=== PATIENT | female | born 1965 | race Caucasian/White ===

== ENCOUNTER 2016-04-04 21:24 | Emergency (ER) | payer OTHER ==
[~2016-04-04] VITALS: Ht 152.4 cm; Wt 52.5 kg
[2016-04-04 21:56] VITALS: Ht 152.4 cm; Wt 52.5 kg
[2016-04-04] MEDS ORDERED: SOD CHLORIDE 0.9% 1,000 ML IV STA (23:47)
[2016-04-05 00:49] LABS: ALBUMIN 4.3 g/dl (3.3-4.9)
[2016-04-05 00:50] LABS: POTASSIUM 3.9 mmol/L (3.5-5.1)
[2016-04-05 00:52] LABS: ALBUMIN/GLOBULIN RATIO 1.1; CREATININE 0.62 mg/dl (0.44-1.00); TOTAL PROTEIN 8.2 g/dl (6.1-8.1)
[2016-04-05 00:53] LABS: CALCIUM 9.2 mg/dl (8.4-10.2)
[2016-04-05 01:00] LABS: BASOPHILS % 0.5 % (0.0-2.0); EOSINOPHILS % 3.7 % (0.0-7.0); HEMOGLOBIN 8.9 g/dl (12.0-16.0); LYMPHOCYTES % 37.3 % (15.0-51.0); MEAN CORPUSCULAR HGB CONC 28.7 g/dl (32.0-37.0); MEAN CORPUSCULAR VOLUME 66.1 fl (82.0-101.0); MONOCYTES % 7.6 % (0.0-11.0); NEUTROPHILS % 50.8 % (39.0-77.0); PLATELET COUNT 246 10^3/UL (140-440); RED BLOOD COUNT 4.69 10^6/ul (4.20-5.40); RED CELL DISTRIBUTION WIDTH 18.7 % (11.5-14.5); WHITE BLOOD COUNT 7.7 10^3/ul (4.8-10.8)
[2016-04-05 01:01] LABS: EOSINOPHILS # 0.3 10^3/ul (0.0-0.5); LYMPHOCYTES # 2.9 10^3/ul (0.8-2.9); MONOCYTE # 0.6 10^3/ul (0.3-0.9); NEUTROPHIL # 3.9 10^3/ul (1.6-7.5)
[2016-04-05 02:01] LABS: ADD UMIC YES; URINE BILIRUBIN (Dip) NEGATIVE (NEGATIVE); URINE BLOOD (Dip) TRACE (NEGATIVE); URINE COLOR LT. YELLOW (YELLOW); URINE GLUCOSE (Dip) >=1000 % (NEGATIVE); URINE KETONES (Dip) NEGATIVE (NEGATIVE); URINE LEUKOCYTE ESTERASE (Dip) NEGATIVE (NEGATIVE); URINE NITRITE (Dip) NEGATIVE (NEGATIVE); URINE TOTAL PROTEIN (Dip) 1+ (NEGATIVE); URINE UROBILINOGEN (Dip) 0.2 E.U./dL (0.1-1.0)
[2016-04-05 02:15] LABS: SQUAMOUS EPITHELIAL CELL,UR MODERATE
[2016-04-05 02:16] LABS: BACTERIA,URINE MODERATE; MUCUS,URINE MODERATE
[2016-04-05] MEDS ORDERED: FER325 PO (02:37)
[2016-04-05] MEDS ORDERED: DOCU-144 PO (02:37)
--- NOTE | 2016-04-05 02:43 | ERD ---
ER Documentation Chief Complaint Date/Time DATE: 04/05/16 TIME: 02:39 Chief Complaint Hyperglycemia. No symptoms HPI 50-year-old female with a past medical history of chronic anemia and diabetes presents to the ED complaining of hyperglycemia and left eye blurred vision. Patient states that she was sent here by her primary care physician for further evaluation. States that she will get a referral to see her terminal gauger. States that the blurred vision has been going on for 2 days however denies any eye pain, eye redness, purulent discharge. Denies any fever, chills, abdominal pain, nausea, vomiting, headache, weakness, dizziness. Patient states that she has not been taking her diabetic medications or iron medications. ROS All systems reviewed and are negative except as per history of present illness. Medications Home Meds Active Scripts Docusate Sodium* (Colace*) 100 Mg Capsule, 100 MG PO TID, #30 CAP Prov:LAILA CHRISTIE PA-C 04/05/16 Ferrous Sulfate* (Ferrous Sulfate*) 325 Mg Tabec, 325 MG PO TID, #60 TAB Prov:LAILA CHRISTIE PA-C 04/05/16 Allergies Allergies: Coded Allergies: No Known Allergies (Verified Allergy, Mild, 01/20/16) PMhx/Soc History of Surgery: Yes ("to not have children anymore") Anesthesia Reaction: No Hx Neurological Disorder: No Hx Respiratory Disorders: No Hx Cardiac Disorders: No Hx Psychiatric Problems: No Hx Miscellaneous Medical Probl: Yes (Diabetes type 1) Hx Alcohol Use: No Hx Substance Use: No Hx Tobacco Use: No Smoking Status: Never smoker Physical Exam Vitals Temp 98.2 Pulse 92 Resp 18 SBP 169 DBP 75 O2 Sat 98 Physical Exam Const: [id number], well-nourished. In no acute distress. Head: Atraumatic, normocephalic Eyes: Normal Conjunctiva without injection. No purulent discharge. PERRLA. EOMI ENT: Normal external ear. Ear canal without erythema. Tympanic membrane pearly romano without effusion or bulging. Nasal canal clear with normal turbinates. Moist oropharynx without tonsillar exudates. Non-erythematous pharynx. Uvula midline. No drooling. No trismus. Neck: No cervical midline tenderness. Full range of motion. No meningismus. No cervical lymphadenopathy. No JVD. Resp: Clear to auscultation bilaterally. No wheezing, rhonchi, rales, or crackles. No accessory muscle use. No retractions. Cardio: Regular rate and rhythm. No murmurs, rubs or gallops. Abd: Soft, non tender, non distended. Normal bowel sounds. No palpable masses. No rebound tenderness. No guarding. Negative McBurney's Point. Negative Mota's Sign. Skin: Normal skin turgor. No petechiae or rashes Back: No midline tenderness. No CVA tenderness. Ext: No cyanosis, or edema. Distal pulses intact bilaterally. Neur: Awake and alert. Normal gait. Normal coordination. Cranial Nerves II- VII intact. Normal finger to nose. Muscle strength 5/5. Sensation intact. Psych: Normal Mood and Affect Result Diagram: 04/05/16 0015 04/05/16 0015 Results 24 hrs Laboratory Tests Test 04/04/16 23:55 04/05/16 00:13 04/05/16 00:15 04/05/16 02:12 Urine Bacteria MODERATE Urine Bilirubin NEGATIVE Urine Clarity CLEAR Urine Color LT. YELLOW Urine Glucose >=1000% Urine Hemoglobin TRACE Urine Ketones NEGATIVE Urine Leukocyte Esterase NEGATIVE Urine Microscopic RBC 2-5/HPF Urine Microscopic WBC 0-2/HPF Urine Mucus MODERATE Urine Nitrite NEGATIVE Urine Specific Goodyear 1.020 Urine Squamous Epithelial Cells MODERATE Urine Total Protein 1+ Urine Urobilinogen 0.2 E.U./dL Urine pH 6.0 Bedside Glucose 314mg/dL 284mg/dL Alanine Aminotransferase (ALT/SGPT) 27IU/L Albumin 4.3g/dl Albumin/Globulin Ratio 1.10 Alkaline Phosphatase 112IU/L Anion Gap 13 Aspartate Amino Transf (AST/SGOT) 25IU/L Basophils # 0.010^3/ul Basophils % 0.5% Blood Urea Nitrogen 17mg/dl Calcium Level 9.2mg/dl Carbon Dioxide Level 31mmol/L Chloride Level 97mmol/L Creatinine 0.62mg/dl Direct Bilirubin 0.00mg/dl Eosinophils # 0.310^3/ul Eosinophils % 3.7% Globulin 3.90g/dl Glucose Level 326mg/dl Hematocrit 31.0% Hemoglobin 8.9g/dl Indirect Bilirubin 0.0mg/dl Lipase 129U/L Lymphocytes # 2.910^3/ul Lymphocytes % 37.3% Mean Corpuscular Hemoglobin 19.0pg Mean Corpuscular Hemoglobin Concent 28.7g/dl Mean Corpuscular Volume 66.1fl Mean Platelet Volume 11.0fl Monocytes # 0.610^3/ul Monocytes % 7.6% Neutrophils # 3.910^3/ul Neutrophils % 50.8% Nucleated Red Blood Cells # 0.010^3/ul Nucleated Red Blood Cells % 0.0/100WBC Platelet Count 94058^3/UL Potassium Level 3.9mmol/L Red Blood Count 4.6910^6/ul Red Cell Distribution Width 18.7% Sodium Level 137mmol/L Total Bilirubin 0.0mg/dl Total Protein 8.2g/dl White Blood Count 7.710^3/ul Current Medications Medications (Trade) Dose Ordered Sig/Andria Route PRN Reason Start Time Stop Time Status Last Admin Dose Admin Sodium Chloride (NS) 1,000 ml @ 1,000 mls/hr Q1H STAT IV 04/04/16 23:47 04/05/16 00:46 DC 04/05/16 00:06 Procedures/MDM This is a 50-year-old female with a past medical history of diabetes and anemia presents the ED complaining of left eye blurred vision as well as hyperglycemia. Patient is afebrile and nontoxic-appearing. Patient has normal vital signs. CBC: No leukocytosis. No e/o of systemic infection. Chronic anemia noted 8.9 CMP: No e/o severe acidosis, alkalosis, renal failure, diabetic ketoacidosis, liver disease. Hyperglycemia noted of 326. 1 L normal saline was given to patient and patient's sugar is now 284. Lipase within normal limits. Urine: No leukocyte esterase, no nitrites, no hematuria. Negative urine Eye exam: Red reflex appreciated. Normal Conjunctiva without injection. No purulent discharge. PERRLA. EOMI. Bilateral 20/70. Left 20/70. Right 20/50 noted Patient's eye symptoms are likely possibly due to diabetic retinopathy due to uncontrolled blood sugars. Low suspicion for ruptured globe, retinal detachment , periorbital cellulitis, acute angle closure glaucoma, deep space infection, iritis, traumatic hyphema, conjunctivitis, subconjunctival hemorrhage, corneal abrasion, corneal ulcer, pterygium, hypopyon, blepharitis, hordeolum, chalazion , or other emergent conditions.Plan for 24 hour ophthalmologic follow up. Low suspicion for DKA, HHS, gastritis, GERD, peptic ulcer disease, cholecystitis, choledocholithiasis, cholangitis, pancreatitis, appendicitis, bowel obstruction , ileus, volvulus, nephrolithiasis, pyelonephritis, hepatitis, perforated viscus , diverticulitis, abdominal hernia, acute abdomen, mesenteric ischemia, stroke, TIA, meningitis, acute AR, cardiac tamponade, pneumonia, pneumothorax, pleural effusion, or other emergent conditions. This case was discussed with my supervising physician, Dr. Grewal who agreed with the management and discharge plan. Stated patient can be managed on outpatient basis. Discharge medications: Colace, ferrous sulfate. Strictly instructed patient to fill the prescription for the diabetic medications at her physician prescribed earlier today and to take it consistently. Follow up with primary care physician in 1-2 days for referral to an terminal gauger. Instructed patient to return to the ED sooner for any worsening symptoms. Patient's questions were answered. Patient understood and agreed with discharge plan. Patient discharged stable. Departure Diagnosis: Primary Impression: Hyperglycemia Additional Impression: Anemia Anemia type: unspecified type Qualified Code: D64.9 - Anemia, unspecified type Condition: Stable Patient Instructions: Anemia, Iron Deficiency (Adult), Diabetic Hyperglycemia Referrals: [facility] YOU HAVE RECEIVED A MEDICAL SCREENING EXAM AND THE RESULTS INDICATE THAT YOU DO NOT HAVE A CONDITION THAT REQUIRES URGENT TREATMENT IN THE EMERGENCY DEPARTMENT. FURTHER EVALUATION AND TREATMENT OF YOUR CONDITION CAN WAIT UNTIL YOU ARE SEEN IN YOUR DOCTORS OFFICE WITHIN THE NEXT 1-2 DAYS. IT IS YOUR RESPONSIBILITY TO MAKE AN APPOINTMENT FOR FOLOW-UP CARE. IF YOU HAVE A PRIMARY DOCTOR --you should call your primary doctor and schedule an appointment IF YOU DO NOT HAVE A PRIMARY DOCTOR YOU CAN CALL OUR PHYSICIAN REFERRAL HOTLINE AT IF YOU CAN NOT AFFORD TO SEE A PHYSICIAN YOU CAN CHOSE FROM THE FOLLOWING [facility] [address] [facility] [address] [email or web address] [address] [facility] [address] [facility] [address] [facility]. [facility] [address] [facility]. [facility] YOU HAVE RECEIVED A MEDICAL SCREENING EXAM AND THE RESULTS INDICATE THAT YOU DO NOT HAVE A CONDITION THAT REQUIRES URGENT TREATMENT IN THE EMERGENCY DEPARTMENT. FURTHER EVALUATION AND TREATMENT OF YOUR CONDITION CAN WAIT UNTIL YOU ARE SEEN IN YOUR DOCTORS OFFICE WITHIN THE NEXT 1-2 DAYS. IT IS YOUR RESPONSIBILITY TO MAKE AN APPOINTMENT FOR FOLOW- CARE. IF YOU HAVE A PRIMARY DOCTOR --you should call your primary doctor and schedule and appointment IF YOU DO NOT HAVE A PRIMARY DOCTOR YOU CAN CALL OUR PHYSICIAN REFERRAL HOTLINE AT . IF YOU CAN NOT AFFORD TO SEE A PHYSICIAN YOU CAN CHOSE FROM THE FOLLOWING [facility] INSTIT[facility]IONS: [facility] [address] [place] [address] [facility] [address] [place] [address] [facility] [address] [place] [address] [facility] Hours: Mon - Fri 9:00 AM - 5:00 PM PHOTOENGRAVER [place] [address] [facility] [address] [place], [place] [phone] OFFICE FAX DR.ABUSLEME RALF [address] [place], [place] [phone] COOPER [place] [address] [place], [place] [phone] [place] [address], [address], [facility] [address] [address] [address] [place], [place] [phone] [facility] [address] [place] [address] [address] [facility] [id number] - [address] CAMACHO, ANDREW [address], [place] [address] [address] GILMAN, [place] [address] [facility] [address], [place] [address] [address] HORNE, [place] [address] [place] [address] Additional Instructions: seguimiento con sosa mdico de atencin primaria maana para derivacin a oftalm logo. es muy importante tavo lauren medicamentos diabticos prescritos a usted. se prescriben pastillas de chintan a usted para sosa anemia crnica LAILA CHRISTIE PA-C Apr 05, 2016 02:43
[2016-04-05 03:03] VITALS: BP 169/75; PULSE 92; RESP 18; TEMP 98.2
== END 2016-04-05 03:03 | disposition home or self-care (01) ==
LOC: FTE 21:24
DX: E10.65 Type 1 diabetes mellitus with hyperglycemia (principal); D64.9 Anemia, unspecified
CPT/HCPCS: 36415; 80053; 81001; 81003; 82962; 83690; 85025; 96360; J7030; Z7502